=== PATIENT | female | born 1965 | race Caucasian/White ===

== ENCOUNTER 2016-10-20 09:49 | Emergency (ER) | payer OTHER ==
[2016-10-20 10:30] LABS: BASO # 0.1 10_X3_uL (0.0-0.1); BASO % 0.5 % (0.1-1.2); EOS # 0.1 10_X3_uL (0.0-0.4); EOS % 0.9 % (0.7-5.8); GRAN # 6.4 10_X3_uL (1.6-6.1); GRAN % 58.3 % (34.0-71.1); HEMATOCRIT 47.4 % (34-45); HEMOGLOBIN 16.5 g/dL (11.2-15.7); LYMPH # 3.7 10_X3_uL (1.2-3.7); LYMPH % 33.7 % (19.3-51.7); MEAN CORPUSCULAR HEMOGLOBIN 33.6 pg (27.0-33.0); MEAN CORPUSCULAR HGB CONC 34.8 g/dL (32.0-36.0); MEAN CORPUSCULAR VOLUME 96.5 fL (79-95); MONO # 0.7 10_X3_uL (0.2-0.9); MONO % 6.6 % (4.7-12.5); PLATELET COUNT 250 x10_3/uL (182-369); RED BLOOD COUNT 4.91 x10_6/uL (3.9-5.2); RED CELL DISTRIBUTION WIDTH 12.6 % (11.7-14.4); WHITE BLOOD COUNT 10.9 x10_3/uL (4.0-10.0)
[2016-10-20 10:42] LABS: URINE BILIRUBIN NEGATIVE (NEGATIVE); URINE BLOOD 3+ (NEGATIVE); URINE GLUCOSE (UA) NORMAL (NORMAL); URINE KETONE NEGATIVE (NEGATIVE); URINE LEUKOCYTE ESTERASE TRACE (NEGATIVE); URINE NITRATE NEGATIVE (NEGATIVE); URINE PROTEIN TRACE (NEGATIVE); UROBILINOGEN NORMAL mg/dL (<1.0)
[2016-10-20 10:54] LABS: URINE BACTERIA 1+ (NONE SEEN); URINE YEAST FEW (NONE SEEN)
== END 2016-10-20 12:10 | disposition home or self-care (01) ==
LOC: ER 09:49
PROVIDERS: Family Medicine
DX: J44.9 Chronic obstructive pulmonary disease, unspecified (principal); R50.9 Fever, unspecified; R30.0 Dysuria; R05 Cough; J02.9 Acute pharyngitis, unspecified; F17.210 Nicotine dependence, cigarettes, uncomplicated; Z79.899 Other long term (current) drug therapy; Z88.5 Allergy status to narcotic agent; Z88.8 Allergy status to other drugs, medicaments and biological substances
CPT/HCPCS: 36415; 81001; 85025; 87400; 99070; 99283

== ENCOUNTER 2017-04-28 13:54 | Emergency (ER) | payer OTHER | END 2017-04-28 14:37 | disposition home or self-care (01) | LOC: ER 13:54 | DX: J20.9 Acute bronchitis, unspecified (principal); R05 Cough; E78.00 Pure hypercholesterolemia, unspecified; F17.210 Nicotine dependence, cigarettes, uncomplicated; Z88.8 Allergy status to other drugs, medicaments and biological substances; Z79.899 Other long term (current) drug therapy | CPT/HCPCS: 87400; 99283 ==